=== PATIENT | female | born 1955 | race Caucasian/White ===

== ENCOUNTER → 2016-10-12 | Outpatient (CLI) | payer OTHER ==
[~2016-10-12] MED LIST: CONTRAST GIVEN MC PRN; IOHEXOL 240 MG/ML 50ML VIAL. ONE; IOHEXOL 300 MG/ML 75 ML VIAL. IV ONE
--- NOTE | 2016-10-13 09:59 | RAD ---
CT of the abdomen and pelvis with contrast, 10/12/2016: History: Abdominal pain, nausea, gastritis Multidetector CT imaging was performed following oral and IV administration of contrast. There is minimal linear scarring and/or atelectasis in the lung bases. There is a small subcapsular cyst in the posterior aspect of the left lobe of the liver. The gallbladder is unremarkable. No pancreatic abnormality is seen. There are calcified granulomata in the spleen. The spleen is of normal size. No renal or adrenal abnormality is detected. The abdominal aorta is unremarkable. No abdominal or pelvic adenopathy is seen. The uterus is within normal limits in size. The ovaries are of normal size. There is a small nonspecific calcification in the right ovary. The bowel loops are not dilated. The appendix is retrocecal in location extending superiorly. There is no evidence of appendicitis. The stomach is collapsed and not well defined. No free fluid or free air is evident in the abdomen or pelvis. IMPRESSION: No acute abdominal or pelvic abnormality is detected. PQRS Compliance Statement: One or more of the following individualized dose reduction techniques were utilized for this examination: 1. Automated exposure control 2. Adjustment of the mA and/or kV according to patient size 3. Use of iterative reconstruction technique
== END | disposition home or self-care (01) ==
LOC: CT 16:15
PROVIDERS: ATTEND Family Medicine
DX: K29.00 Acute gastritis without bleeding (principal)
CPT/HCPCS: 74177; Q9966; Q9967

== ENCOUNTER → 2019-06-12 | Outpatient (CLI) | payer OTHER ==
--- NOTE | 2019-06-12 16:43 | RAD ---
Left shoulder 3 views. HISTORY: Left shoulder pain 3 views were taken of the left shoulder. There is prominent spurring on the humeral head from arthritis. There is no fracture or dislocation. IMPRESSION: 1. No fracture or dislocation left shoulder. 2. Osteoarthritis left shoulder. Electronically signed by: Steve Gillis MD (06/12/2019 4:40 PM) [id number]
== END | disposition home or self-care (01) ==
LOC: DXRAD 16:16
PROVIDERS: ATTEND Family Medicine
DX: M19.012 Primary osteoarthritis, left shoulder (principal)
CPT/HCPCS: 73030